=== PATIENT | male | born 1945 | race Asian ===

== ENCOUNTER 2019-08-10 15:43 | Outpatient (CLI) | payer MEDICARE, SELFPAY ==
[2019-08-10 17:16] LABS: Basophils Absolute Auto 0.1 K/mm3 (0.0-0.1); Basophils Percent Auto 0.7 % (0.2-1.2); Eosinophils Absolute Auto 0.3 K/mm3 (0-0.3); Eosinophils Percent Auto 2.8 % (0-4.4); Hematocrit 40.1 % (42.0-52.0); Hemoglobin 12.7 g/dL (14.0-18.0); Immature Granulocyte Absolute 0.03 K/mm3 (0.00-0.031); Immature Granulocyte Percent A 0.3 % (0-0.5); Lymphocytes Absolute Auto 1.89 K/mm3 (0.9-3.2); Mean Corpuscular HGB Conc 31.7 g/dl (32-36); Mean Corpuscular Hemoglobin 29.9 pg (26-34); Mean Corpuscular Volume 94.4 fl (80-100); Mean Platelet Volume 9.6 fl (7.4-10.4); Monocytes Absolute Auto 0.6 K/mm3 (0.1-0.6); Monocytes Percent Auto 6.5 % (2.6-8.5); Neutrophils Absolute Auto 6.6 K/mm3 (1.3-6.7); Neutrophils Percent Auto 69.7 % (45.5-73.1); Platelet Count Result 319 k/mm3 (150-375); Red Blood Count 4.25 M/mm3 (4.6-6.20); Red Cell Distribution Width 11.9 % (11.5-14.5); White Blood Count 9.4 K/mm3 (4.5-10.0)
[2019-08-10 17:30] LABS: Alanine Aminotransferase 14 U/L (4-50); Albumin Level 4.2 g/dL (3.5-5.1); Alkaline Phosphatase 140 U/L (38-126); Aspartate Amino Transferase 24 U/L (17-59); Bilirubin,Total 0.7 mg/dL (0.2-1.3); Blood Urea Nitrogen 17 mg/dL (9-20); Calcium 9.6 mg/dL (8.4-10.2); Carbon Dioxide 30 mmol/L (22-30); Chloride 91 mmol/L (98-107); Cholesterol 244 mg/dL (0-200); Estimated Glomerular Filt Rate > 60; Glucose 104 mg/dL (75-110); HDL Direct 35 mg/dL; Potassium 3.5 mmol/L (3.4-5.0); Sodium 134 mmol/L (137-145); Triglycerides 123 mg/dL (<150)
[2019-08-10 17:32] LABS: Hemoglobin A1C 4.8 % (<5.7)
[2019-08-10 17:41] LABS: LDL Cholesterol Direct 179 mg/dL
== END 2019-08-10 15:44 | disposition home or self-care (01) ==
LOC: ANHLAB 15:48
PROVIDERS: Visit Provider Physician Assistant
DX: R73.9 Hyperglycemia, unspecified (principal); I10 Essential (primary) hypertension; R53.83 Other fatigue
CPT/HCPCS: 36415; 80053; 80061; 83036; 85025

== ENCOUNTER 2019-08-23 13:39 | Outpatient (CLI) | payer MEDICARE, SELFPAY ==
[2019-08-23 14:17] LABS: Hematocrit 39.5 % (42.0-52.0); Hemoglobin 12.5 g/dL (14.0-18.0)
[2019-08-23 14:20] LABS: Add Urine Microscopic? YES; Appearance Urine Clear (Clear); Bilirubin Urine Negative (Negative); Blood Urine Negative (Negative); Color Urine Yellow (Yellow); Glucose Urine UA Negative (Negative); Ketones Urine Negative (Negative); Leukocyte Esterase Ur Negative LEU/UL (NEGATIVE); Mucus Urine Rare /lpf; Nitrate Urine Negative (Negative); Protein Urine Negative (Negative); RBC Urine 0-2 /hpf (0-2); Specific Grav Ur 1.012 (1.001-1.035); Urobilinogen Urine Negative mg/dL (<2.0)
[2019-08-23 14:27] LABS: Magnesium 1.9 mg/dL (1.6-2.3)
[2019-08-23 14:33] LABS: Rheumatoid Factor < 8.6 IU/ML (<12)
[2019-08-23 14:59] LABS: Iron 53 ug/dL (49-181)
[2019-08-23 15:00] LABS: Thyroid Stimulating Hormone 0.745 uIU/mL (0.465-4.680)
[2019-08-23 15:08] LABS: Percent Iron Saturation 18 % (20-50)
[2019-08-23 15:14] LABS: Erythrocyte Sedimentation Rate 64 mm/hr (0-20)
[2019-08-23 15:18] LABS: Free T4 Free Thyroxine 1.11 ng/mL (0.78-2.19)
[2019-08-23 15:48] LABS: Vitamin D 25 Hydroxy 64.3 ng/mL
[2019-08-26 10:20] LABS: Mitochondrial (M2) Ab (IgG) <=20.0 U (<=20.0)
== END 2019-08-23 13:40 | disposition home or self-care (01) ==
PROVIDERS: Visit Provider Internal Medicine
DX: D64.9 Anemia, unspecified (principal); G54.9 Nerve root and plexus disorder, unspecified; E55.9 Vitamin D deficiency, unspecified; I10 Essential (primary) hypertension; R53.83 Other fatigue; M79.10 Myalgia, unspecified site; R74.8 Abnormal levels of other serum enzymes
CPT/HCPCS: 36415; 81001; 82306; 82607; 82746; 83520; 83540; 83550; 83735; 84439; 84443; 85014; 85018; 85652; 86038; 86430

== ENCOUNTER 2019-10-26 13:19 | Outpatient (CLI) | payer MEDICARE, SELFPAY ==
[2019-10-26 13:44] LABS: Basophils Percent Auto 0.3 % (0.2-1.2); Eosinophils Percent Auto 0.1 % (0-4.4); Hematocrit 41.9 % (42.0-52.0); Hemoglobin 13.8 g/dL (14.0-18.0); Immature Granulocyte Absolute 0.08 K/mm3 (0.00-0.031); Immature Granulocyte Percent A 0.8 % (0-0.5); Lymphocytes Absolute Auto 1.28 K/mm3 (0.9-3.2); Lymphocytes Percent Auto 13.1 % (18.3-44.2); Mean Corpuscular HGB Conc 32.9 g/dl (32-36); Mean Corpuscular Hemoglobin 30.7 pg (26-34); Mean Corpuscular Volume 93.3 fl (80-100); Mean Platelet Volume 8.9 fl (7.4-10.4); Monocytes Absolute Auto 0.3 K/mm3 (0.1-0.6); Monocytes Percent Auto 2.9 % (2.6-8.5); Neutrophils Absolute Auto 8.1 K/mm3 (1.3-6.7); Neutrophils Percent Auto 82.8 % (45.5-73.1); Platelet Count Result 251 k/mm3 (150-375); Red Blood Count 4.49 M/mm3 (4.6-6.20); Red Cell Distribution Width 11.7 % (11.5-14.5); White Blood Count 9.8 K/mm3 (4.5-10.0)
[2019-10-26 13:53] LABS: Hemoglobin A1C 4.9 % (<5.7)
[2019-10-26 13:57] LABS: Alanine Aminotransferase 36 U/L (4-50); Alkaline Phosphatase 98 U/L (38-126); Aspartate Amino Transferase 29 U/L (17-59); Bilirubin,Total 0.7 mg/dL (0.2-1.3); Blood Urea Nitrogen 22 mg/dL (9-20); Calcium 8.8 mg/dL (8.4-10.2); Carbon Dioxide 27 mmol/L (22-30); Chloride 91 mmol/L (98-107); Cholesterol 229 mg/dL (0-200); Estimated Glomerular Filt Rate > 60; Glucose 110 mg/dL (75-110); HDL Direct 67 mg/dL; Magnesium 1.9 mg/dL (1.6-2.3); Potassium 4.1 mmol/L (3.4-5.0); Sodium 126 mmol/L (137-145); Triglycerides 134 mg/dL (<150)
[2019-10-26 14:08] LABS: LDL Cholesterol Direct 133 mg/dL
[2019-10-26 14:19] LABS: Erythrocyte Sedimentation Rate 11 mm/hr (0-20)
[2019-10-26 14:22] LABS: Iron 117 ug/dL (49-181)
[2019-10-26 14:28] LABS: Thyroid Stimulating Hormone 0.533 uIU/mL (0.465-4.680)
[2019-10-26 14:32] LABS: Percent Iron Saturation 39 % (20-50)
[2019-10-26 14:41] LABS: Free T4 Free Thyroxine 1.41 ng/mL (0.78-2.19)
[2019-10-26 15:02] LABS: Folic Acid 15.7 ng/mL (2.76->20)
[2019-10-26 15:18] LABS: Rheumatoid Factor < 8.6 IU/ML (<12)
[2019-10-26 15:23] LABS: Vitamin D 25 Hydroxy 70.2 ng/mL
== END 2019-10-26 13:20 | disposition home or self-care (01) ==
PROVIDERS: PCP Internal Medicine; Visit Provider Internal Medicine
DX: R74.8 Abnormal levels of other serum enzymes (principal); R70.0 Elevated erythrocyte sedimentation rate; D64.9 Anemia, unspecified; R53.83 Other fatigue; E78.5 Hyperlipidemia, unspecified; R79.89 Other specified abnormal findings of blood chemistry; R73.9 Hyperglycemia, unspecified; I10 Essential (primary) hypertension; E55.9 Vitamin D deficiency, unspecified
CPT/HCPCS: 36415; 80053; 80061; 82085; 82306; 82607; 82746; 83036; 83540; 83550; 83735; 84439; 84443; 85025; 85652; 86038; 86430

== ENCOUNTER 2020-01-25 15:03 | Outpatient (CLI) | payer MEDICARE, SELFPAY ==
[2020-01-25 15:26] LABS: Basophils Percent Auto 0.4 % (0.2-1.2); Eosinophils Percent Auto 0.1 % (0-4.4); Hematocrit 41.2 % (42.0-52.0); Hemoglobin 13.8 g/dL (14.0-18.0); Lymphocytes Absolute Auto 1.11 K/mm3 (0.9-3.2); Lymphocytes Percent Auto 10.6 % (18.3-44.2); Mean Corpuscular HGB Conc 33.5 g/dl (32-36); Mean Corpuscular Hemoglobin 31.2 pg (26-34); Mean Corpuscular Volume 93.2 fl (80-100); Mean Platelet Volume 8.8 fl (7.4-10.4); Monocytes Absolute Auto 0.4 K/mm3 (0.1-0.6); Neutrophils Absolute Auto 8.8 K/mm3 (1.3-6.7); Neutrophils Percent Auto 83.9 % (45.5-73.1); Platelet Count Result 265 k/mm3 (150-375); Red Blood Count 4.42 M/mm3 (4.6-6.20); Red Cell Distribution Width 11.5 % (11.5-14.5); White Blood Count 10.4 K/mm3 (4.5-10.0)
[2020-01-25 15:52] LABS: Alanine Aminotransferase 16 U/L (4-50); Albumin Level 4.3 g/dL (3.5-5.1); Alkaline Phosphatase 103 U/L (38-126); Aspartate Amino Transferase 27 U/L (17-59); Bilirubin,Total 0.4 mg/dL (0.2-1.3); Blood Urea Nitrogen 20 mg/dL (9-20); Calcium 9.5 mg/dL (8.4-10.2); Carbon Dioxide 28 mmol/L (22-30); Chloride 91 mmol/L (98-107); Cholesterol 283 mg/dL (0-200); Estimated Glomerular Filt Rate > 60; Glucose 122 mg/dL (75-110); HDL Direct 59 mg/dL; Potassium 4.1 mmol/L (3.4-5.0); Sodium 128 mmol/L (137-145); Triglycerides 213 mg/dL (<150)
[2020-01-25 16:04] LABS: LDL Cholesterol Direct 173 mg/dL
[2020-01-25 16:23] LABS: Thyroid Stimulating Hormone 0.414 uIU/mL (0.465-4.680)
[2020-01-25 16:28] LABS: Iron 91 ug/dL (49-181)
[2020-01-25 16:34] LABS: Percent Iron Saturation 30 % (20-50)
[2020-01-25 16:41] LABS: Vitamin D 25 Hydroxy 75.7 ng/mL
[2020-01-25 16:58] LABS: Folic Acid 16.2 ng/mL (2.76->20)
== END 2020-01-25 15:04 | disposition home or self-care (01) ==
PROVIDERS: PCP Internal Medicine; Visit Provider Internal Medicine
DX: D64.9 Anemia, unspecified (principal); I10 Essential (primary) hypertension; E78.5 Hyperlipidemia, unspecified; R53.83 Other fatigue; E55.9 Vitamin D deficiency, unspecified
CPT/HCPCS: 36415; 80053; 80061; 82306; 82607; 82746; 83540; 83550; 84443; 85025

== ENCOUNTER 2020-04-11 14:11 | Outpatient (CLI) | payer MEDICARE, SELFPAY ==
[2020-04-11 14:51] LABS: Basophils Percent Auto 0.3 % (0.2-1.2); Hematocrit 35.1 % (42.0-52.0); Immature Granulocyte Absolute 0.09 K/mm3 (0.00-0.031); Immature Granulocyte Percent A 0.8 % (0-0.5); Lymphocytes Absolute Auto 0.68 K/mm3 (0.9-3.2); Lymphocytes Percent Auto 6.3 % (18.3-44.2); Mean Corpuscular HGB Conc 34.2 g/dl (32-36); Mean Corpuscular Hemoglobin 30.5 pg (26-34); Mean Corpuscular Volume 89.3 fl (80-100); Mean Platelet Volume 8.5 fl (7.4-10.4); Monocytes Absolute Auto 0.6 K/mm3 (0.1-0.6); Monocytes Percent Auto 5.9 % (2.6-8.5); Neutrophils Absolute Auto 9.3 K/mm3 (1.3-6.7); Neutrophils Percent Auto 86.7 % (45.5-73.1); Platelet Count Result 336 k/mm3 (150-375); Red Blood Count 3.93 M/mm3 (4.6-6.20); Red Cell Distribution Width 11.5 % (11.5-14.5); White Blood Count 10.7 K/mm3 (4.5-10.0)
[2020-04-11 14:57] LABS: Alanine Aminotransferase 44 U/L (4-50); Albumin Level 3.7 g/dL (3.5-5.1); Alkaline Phosphatase 105 U/L (38-126); Anion Gap 6 mmol/L (8-16); Aspartate Amino Transferase 40 U/L (17-59); Bilirubin,Total 0.5 mg/dL (0.2-1.3); Blood Urea Nitrogen 11 mg/dL (9-20); Calcium 9.1 mg/dL (8.4-10.2); Carbon Dioxide 30 mmol/L (22-30); Chloride 93 mmol/L (98-107); Estimated Glomerular Filt Rate > 60; Glucose 115 mg/dL (75-110); Potassium 4.5 mmol/L (3.4-5.0); Sodium 129 mmol/L (137-145)
== END 2020-04-11 14:12 | disposition home or self-care (01) ==
PROVIDERS: PCP Internal Medicine; Visit Provider Internal Medicine
DX: R53.83 Other fatigue (principal)
CPT/HCPCS: 36415; 80053; 85025

== ENCOUNTER 2020-04-18 12:36 | Outpatient (CLI) | payer MEDICARE, SELFPAY ==
[2020-04-18 16:36] LABS: Immunochemical Fecal Occult Bl Negative (N)
[2020-04-18 16:37] LABS: IFOB Positive Control Positive
[2020-04-24 20:23] LABS: Lactoferrin, Stool Negative (Negative)
== END 2020-04-18 12:37 | disposition home or self-care (01) ==
PROVIDERS: Visit Provider Internal Medicine
DX: D64.9 Anemia, unspecified (principal); R19.7 Diarrhea, unspecified
CPT/HCPCS: 82274; 83630